=== PATIENT | male | born 1970 | race Caucasian/White ===

== ENCOUNTER → 2016-10-27 | Outpatient (CLI) | payer OTHER | LOC: EDSTATUS 13:56 → FIMAGING 14:00 | PROVIDERS: ATTEND Internal Medicine | DX: S22.32XA Fracture of one rib, left side, initial encounter for closed fracture (principal); Y93.55 Activity, bike riding ==

== ENCOUNTER → 2017-03-12 | Outpatient (CLI) | payer OTHER | LOC: FIMAGING 09:37 | PROVIDERS: ATTEND Internal Medicine | DX: S90.851A Superficial foreign body, right foot, initial encounter (principal); W25.XXXA Contact with sharp glass, initial encounter ==